=== PATIENT | male | born 1985 | race Caucasian/White ===

== ENCOUNTER → 2023-12-01 09:28 | Outpatient (CLI) | payer BC, SELFPAY ==
--- NOTE | 2023-12-01 09:31 | DI.RAD.S_ITS ---
PROCEDURE: XR KUB INDICATIONS: constipation TECHNIQUE: One view of the abdomen acquired. COMPARISON: None. FINDINGS: Surgical changes and devices: None. Bowel: Bowel gas pattern is normal. Soft tissues: No suspicious abdominal calcifications. Visualized solid organ contours appear normal in size. Bones: No suspicious bony lesions. IMPRESSION: No acute abnormality. Dictated by: Mu Fox M.D. on 12/01/2023 at 11:30 Approved by: Mu Fox M.D. on 12/01/2023 at 11:31
== END ==
PROVIDERS: PCP Family Medicine; Referring Provider Family Medicine; Visit Provider Family Medicine
DX: K59.01 Slow transit constipation (principal)
CPT/HCPCS: 74018

== ENCOUNTER 2024-09-18 14:47 | Emergency (ER) | payer BC, SELFPAY ==
[2024-09-18] VITALS (15 sets, daily range): BP systolic 110–126; BP diastolic 56–84; PULSE 55–70; RESP 12–24; TEMP 36.9; O2SAT 96–98; BMI 36.6
--- NOTE | 2024-09-18 14:58 | DI.RAD.S_ITS ---
PROCEDURE: XR CHEST 1V INDICATIONS: chest pain TECHNIQUE: One view of the chest was acquired. COMPARISON: None. FINDINGS: Surgical changes and devices: None. Lungs and pleura: An incomplete inspiratory result is noted, causing a crowded appearance to the lung markings. No focal infiltrates are seen. No pneumothorax or significant pleural effusions are seen. Mediastinum: Mediastinal contours appear normal. Heart size is normal. Bones and chest wall: No suspicious bony lesions. There is a remote, healed right clavicle fracture. Overlying soft tissues appear unremarkable. IMPRESSION: Limited portable chest examination, without a significant cardiopulmonary abnormality identified. Additional findings: Remote right clavicle fracture Dictated by: Arnie Stanton M.D. on 09/18/2024 at 14:47 Approved by: Arnie Stanton M.D. on 09/18/2024 at 14:47
--- NOTE | 2024-09-18 15:11 | EKG_ITS ---
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
[2024-09-18] MEDS: ASPIRIN 81 MG CHEW TAB 324 MG PO (15:20)
[2024-09-18 15:23] LABS: Add Manual Diff / Slide Review NO; Basophils Absolute Auto 0 /uL (0-100); Basophils Percent Auto 0.6 % (0-2); Eosinophils Absolute Auto 200 /uL (0-450); Hematocrit 42.5 % (41-53); Hemoglobin 14.1 g/dL (13.5-17.5); Lymphocytes Absolute Auto 2100 /uL (1100-4500); Lymphocytes Percent Auto 27.4 % (25-40); Mean Corpuscular HGB Conc 33.2 % (30-36); Mean Corpuscular Hemoglobin 26.6 PG (26-34); Mean Corpuscular Volume 80.3 fL (80-100); Monocytes Absolute Auto 500 /uL (0-900); Monocytes Percent Auto 6.1 % (3-14); Neutrophils Absolute Auto 4800 /uL (1500-7000); Neutrophils Percent Auto 63.9 % (50-75); Platelet Count 207 X10^3/uL (150-400); Red Blood Cell Count 5.29 X10^6/uL (4.5-5.9); Red Cell Distribution Width 13.5 % (11.6-14.8); White Blood Cell Count 7.5 X10^3/uL (4.5-11.0)
[2024-09-18 15:31] LABS: Prothrombin Time 11.5 SECONDS (9.4-12.5)
[2024-09-18 15:33] LABS: PTT Partial Thromboplastin Tim 37 SECONDS (25.1-36.5)
[2024-09-18 15:35] LABS: Alanine Aminotransferase 54 IU/L (<50); Albumin 4.4 g/dL (3.5-5.0); Albumin Globulin Ratio 1.5 (1.0-2.8); Alkaline Phosphatase 74 U/L (38-126); Aspartate Aminotransferase 34 IU/L (17-59); BUN Creatinine Ratio 20.7 (6-22); Bilirubin Total 0.4 mg/dL (0.2-1.3); Blood Urea Nitrogen 25 mg/dL (9-20); Calcium 9.6 mg/dL (8.4-10.2); Carbon Dioxide 23 mmol/L (22-32); Chloride 108 mmol/L (98-107); Creatine Kinase 218 U/L (55-170); Estimated Glomerular Filt Rate > 60 mL/min (>60); Globulin 2.9 g/dL (1.7-4.1); Glucose 88 mg/dL (70-100); HEMOLYSIS < 15 (0-50); Lipase 69 U/L (23-300); Magnesium 1.9 mg/dL (1.6-2.3); Potassium 4.5 mmol/L (3.4-5.1); Sodium 140 mmol/L (137-145); Total Protein 7.3 g/dL (6.3-8.2)
[2024-09-18 15:46] LABS: NT-proBNP (BNP-Adult 18+) 162 pg/mL (<125); Troponin I < 0.012 ng/mL (0.01-0.034)
[2024-09-18 18:07] LABS: Troponin I < 0.012 ng/mL (0.01-0.034)
--- NOTE | 2024-09-18 18:07 | ED.CHESTPAIN ---
HPI - Chest Pain General Chief Complaint: Chest Pain Stated Complaint: chest px, sob, numbness left hand and face Time Seen by Provider: 09/18/24 15:24 Source: patient Mode of arrival: Ambulatory Limitations: no limitations History of Present Illness HPI narrative: 39-year-old male without history of CAD, chronic lung problems or asthma, complains of left-sided anterior pleuritic chest pain this afternoon. He had recently been painting in his garage, closed space, did not feel particularly short of breath, no injury or fall noted. This afternoon started feeling some left-sided pleuritic chest pain, no chest pain with shallow breathing, not worse or reproduced with left arm movements. No recent fevers chills cough. Denies sensation of shortness of breath. No history of blood clots to legs or lungs, denies recent leg pain or swelling symptoms. He does not take blood thinner medications. He has not had any cardiac stress testing, no previous cardiac problems. He denies cardiac risk factors. No recent trauma or injury. 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 HEAD: Atraumatic. Normocephalic. EYES: Pupils equal round and reactive. Extraocular motions intact. No scleral icterus. No injection or drainage. ENT: Nose without bleeding, purulent drainage. Throat without erythema, tonsillar hypertrophy or exudate. Airway patent. NECK: Trachea midline. Non tender CARDIOVASCULAR: Regular rate and rhythm without murmurs, gallops, or rubs. RESPIRATORY: Clear to auscultation. Breath sounds equal bilaterally. No wheezes, rales, or rhonchi. GASTROINTESTINAL: Abdomen soft, non-tender, nondistended. EXTREMITIES: No edema or joint tenderness. BACK: Nontender without deformity or crepitance. No flank tenderness. NEURO: AOx3. Motor functions grossly nonfocal SKIN: No rash or erythema of visible areas Initial Vital Signs Initial Vital Signs: Vital Signs Temperature 98.5 F 09/18/24 14:53 Pulse Rate 70 09/18/24 14:53 Respiratory Rate 20 09/18/24 14:53 Blood Pressure 120/74 09/18/24 14:53 Pulse Oximetry 97 09/18/24 14:53 Oxygen Delivery Method Room Air 09/18/24 14:53 Course Orders Ordered: ED Orders 09/18/24 14:58 XR chest 1V Stat EKG-12 Lead Stat 09/18/24 15:14 Complete Blood Count AUTO DIFF Stat Comprehensive Metabolic Panel Stat D Dimer Stat Lipase Stat Magnesium Stat NT-proBNP (BNP-Adult 18+) Stat PTT Partial Thromboplastin Rickie Stat Prothrombin Time INR Stat Troponin & CK Cardiac Panel Stat 09/18/24 17:37 Trop I [Troponin I] Stat Discontinued Medications Aspirin (Aspirin 81 Mg Chew Tab) 324 mg PO NOW ONE Stop: 09/18/24 14:59 Last Admin: 09/18/24 15:20 Dose: 324 mg Documented By: DAVID Ketorolac Tromethamine (Ketorolac 30 Mg/Ml Vial) 15 mg IV NOW ONE Stop: 09/18/24 18:18 Last Admin: 09/18/24 18:22 Dose: 15 mg Documented By: DAVID Vital Signs Vital signs: Vital Signs - 8 hr 09/18/24 14:53 09/18/24 15:01 09/18/24 15:02 Temperature 98.5 F Pulse Rate 70 65 66 Respiratory Rate 20 Blood Pressure 120/74 Pulse Oximetry 97 96 96 Oxygen Delivery Method Room Air 09/18/24 15:02 09/18/24 15:30 09/18/24 15:30 Temperature Pulse Rate 64 Respiratory Rate 22 Blood Pressure 119/56 L 119/64 Pulse Oximetry 96 Oxygen Delivery Method 09/18/24 16:00 09/18/24 16:00 09/18/24 16:30 Temperature Pulse Rate 60 55 L Respiratory Rate 20 21 Blood Pressure 113/77 Pulse Oximetry 98 97 Oxygen Delivery Method 09/18/24 16:31 09/18/24 16:31 09/18/24 17:00 Temperature Pulse Rate 60 58 L Respiratory Rate 24 12 Blood Pressure 110/84 Pulse Oximetry 96 98 Oxygen Delivery Method 09/18/24 17:01 09/18/24 17:01 09/18/24 17:30 Temperature Pulse Rate 58 L 56 L Respiratory Rate 21 22 Blood Pressure 113/62 Pulse Oximetry 98 98 Oxygen Delivery Method 09/18/24 17:39 09/18/24 17:39 09/18/24 18:00 Temperature Pulse Rate 57 L 62 Respiratory Rate 23 19 Blood Pressure 126/71 Pulse Oximetry 97 97 Oxygen Delivery Method 09/18/24 18:30 09/18/24 19:00 09/18/24 19:12 Temperature Pulse Rate 59 L 60 Respiratory Rate 19 20 Blood Pressure 126/69 Pulse Oximetry 97 97 Oxygen Delivery Method MDM - Chest Pain Lab Data Attestation: I reviewed the patient's lab results. Lab results narrative: White blood cell count 7500, hemoglobin 14, platelets [id number] adequate, basic metabolic panel unremarkable. Liver functions normal. Lipase normal. Initial troponin and repeat subsequent troponin negative. D-dimer also sent home was not elevated. 09/18/24 15:14 09/18/24 15:14 Labs: Lab Results 09/18/24 09/18/24 Range/Units 15:14 17:37 WBC 7.5 (4.5-11.0) X10^3/uL RBC 5.29 (4.5-5.9) X10^6/uL Hgb 14.1 (13.5-17.5) g/dL Hct 42.5 (41-53) % MCV 80.3 (80-100) fL MCH 26.6 (26-34) PG MCHC 33.2 (30-36) % RDW 13.5 (11.6-14.8) % Plt Count 207 (150-400) X10^3/uL Neut % (Auto) 63.9 (50-75) % Lymph % (Auto) 27.4 (25-40) % Ford % (Auto) 6.1 (3-14) % Eos % (Auto) 2.0 (2-4) % Baso % (Auto) 0.6 (0-2) % Neut # (Auto) 4800 (1953-6721) /uL Lymph # (Auto) 2100 (9779-6889) /uL Ford # (Auto) 500 (0-900) /uL Eos # (Auto) 200 (0-450) /uL Baso # (Auto) 0 (0-100) /uL PT 11.5 (9.4-12.5) SECONDS INR 1.0 (0.9-1.3) APTT 37 H (25.1-36.5) SECONDS D-Dimer 285 (<500) ng/ml Sodium 140 (137-145) mmol/L Potassium 4.5 (3.4-5.1) mmol/L Chloride 108 H (98-107) mmol/L Carbon Dioxide 23 (22-32) mmol/L BUN 25 H (9-20) mg/dL Creatinine 1.21 (0.66-1.25) mg/dL Estimated GFR > 60 (>60) mL/min BUN/Creatinine Ratio 20.7 (6-22) Glucose 88 (70-100) mg/dL Calcium 9.6 (8.4-10.2) mg/dL Magnesium 1.9 (1.6-2.3) mg/dL Total Bilirubin 0.4 (0.2-1.3) mg/dL AST 34 (17-59) IU/L ALT 54 H (<50) IU/L Alkaline Phosphatase 74 (38-126) U/L Total Creatine Kinase 218 H (55-170) U/L Troponin I < 0.012 < 0.012 (0.01-0.034) ng/mL NT-Pro-B Natriuret Pep 162 H (<125) pg/mL Total Protein 7.3 (6.3-8.2) g/dL Albumin 4.4 (3.5-5.0) g/dL Globulin 2.9 (1.7-4.1) g/dL Albumin/Globulin Ratio 1.5 (1.0-2.8) Lipase 69 (23-300) U/L Imaging Data Chest x-ray: Radiologist's Impression: Close Chest X-Ray (Signed) Arnie Stanton - 09/18/[address] [address] XRay Report Signed Patient: Regan Becerra MR#: [id number] : 1985 Acct:[id number] Age/Sex: 39 / M Date of Service: 09/18/24 Loc: ED Accession Number: [id number] Procedure: XR chest 1V Ordering Provider: Serene Schmid MD PROCEDURE: XR CHEST 1V INDICATIONS: chest pain TECHNIQUE: One view of the chest was acquired. COMPARISON: None. FINDINGS: Surgical changes and devices: None. Lungs and pleura: An incomplete inspiratory result is noted, causing a crowded appearance to the lung markings. No focal infiltrates are seen. No pneumothorax or significant pleural effusions are seen. Mediastinum: Mediastinal contours appear normal. Heart size is normal. Bones and chest wall: No suspicious bony lesions. There is a remote, healed right clavicle fracture. Overlying soft tissues appear unremarkable. IMPRESSION: Limited portable chest examination, without a significant cardiopulmonary abnormality identified. Additional findings: Remote right clavicle fracture Dictated by: Arnie Stanton M.D. on 09/18/2024 at 14:47 Approved by: Arnie Stanton M.D. on 09/18/2024 at 14:47 ECG Data Attestation: I personally reviewed and interpreted this ECG as follows: Interpretation: Normal sinus rhythm with rate of 66. No obvious ST segment elevation or depression changes. T-wave inversions lead 3 and F. Upright in lead 2. NE 180, QRS 102, QTC 413. MDM Narrative Medical decision making narrative: 39-year-old male with no known CAD risk factors, no risk factors for thromboembolism, has left anterior pleuritic chest pain today. No injury. No rash or bruising. Not worse with left upper extremity movements, but worse with deep breathing. No recent cough, afebrile, sirs screen negative. Chest x-ray unremarkable. EKG and serial blood tests troponins negative. PERC negative but we did send D-dimer, which was not elevated reassuring. Doubt thromboembolic event at this time. We discussed CT angio screening, hold this test for now. Oral aspirin given. IV Toradol anti-inflammatory given. Advised use of ibuprofen for possible musculoskeletal or pleurisy treatment. Recheck advised if symptoms persist in the next couple of days with the regular provider. Further workup and follow up as an outpatient for now. Patient agreeable to this plan. Express understanding. Return precautions discussed. Discharge Plan Departure Patient Disposition: Home Clinical Impression: Pleuritic chest pain Activity Restrictions/Additional Instructions: Left-sided pleuritic chest pain earlier today, recent painting activity, however symptoms persisted after removal from a garage painting area, no history of asthma or wheezing. Pain is worse with deep inspiration but not particularly worse with left upper arm movements. EKG and serial blood tests not suggestive of heart attack. Chest x-ray unremarkable. No recent it viral illness symptoms, COVID/influenza swab testing discussed but declined for now. Aspirin taken orally. IV dose of Toradol anti-inflammatory pain medication given. No history of blood clots to legs or lungs, no leg pain or swelling symptoms, no risk factors for abnormal clotting. Screening blood tests D-dimer was sent additionally, which was not elevated. Seems unlikely your symptoms would be due to unprovoked blood clot to lungs at this time. Likely musculoskeletal cause. Further cardiac and/or pulmonary workup can be pursued as an outpatient as needed. Consider use of [id number] ibuprofen as needed for discomfort. Recheck symptoms with your regular doctor if persisting this week next couple of days. Return to this/nearest emergency department for any change worsening symptoms or any concerns prior Prescriptions: No Action polyethylene glycol 3350 [Laxative PEG 3350] 17 gram/dose powder 17 g PO DAILY Qty: 510 2RF Referrals: Enrique Lara MD [Primary Care Provider] - Stand Alone Forms: Patient Portal/API
[2024-09-18] MEDS: KETOROLAC 30 MG/ML VIAL 15 MG IV (18:22)
[2024-09-18 18:33] LABS: D Dimer 285 ng/ml (<500)
== END 2024-09-18 19:12 | disposition home or self-care (01) ==
PROVIDERS: Emergency Medicine; Emergency Provider Emergency Medicine; PCP Family Medicine
DX: R07.89 Other chest pain (principal)
CPT/HCPCS: 36415; 71045; 80053; 82550; 83690; 83735; 83880; 84484; 85025; 85379; 85610; 85730; 93005; 96374; 99284; J1885